=== PATIENT | male | born 1975 | race Caucasian/White ===

== ENCOUNTER 2018-11-29 19:10 | Inpatient (IN) | payer MEDICAID ==
[~2018-11-29] VITALS: Ht 182.9 cm; Wt 102.0 kg
[~2018-11-29 19:10] MED LIST: IBUP-1574 PO
[2018-11-29 20:39] LABS: BASOPHILS # (AUTO) 0.1 X10'3 (0-0.2); EOSINOPHILS # (AUTO) 0.1 X10'3 (0-0.9); MEAN PLATELET VOLUME 8.5 FL (7.4-10.4); MONOCYTES # (AUTO) 1.2 X10'3 (0-0.9)
[2018-11-29 20:40] LABS: BASOPHILS % (AUTO) 0.8 % (0-1); EOSINOPHILS % (AUTO) 0.6 % (0-6); HEMATOCRIT 50.1 % (42.0-52.0); HEMOGLOBIN 16.7 g/dl (14.0-17.9); LYMPHOCYTES # (AUTO) 2.6 X10'3 (1.1-4.8); LYMPHOCYTES % (AUTO) 18.9 % (21-51); MEAN CORPUSCULAR HEMOGLOBIN 29.9 PG (27.0-31.0); MEAN CORPUSCULAR HGB CONC 33.4 g/dL (33.0-36.5); MEAN CORPUSCULAR VOLUME 89.7 FL (78-98); NEUTROPHILS # (AUTO) 9.7 X10'3 (1.8-7.7); NEUTROPHILS % (AUTO) 70.7 % (42-75); PLATELET COUNT 316 X10'3 (140-440); RED BLOOD COUNT 5.59 X10'6 (4.70-6.10); RED CELL DISTRIBUTION WIDTH 15.1 % (11.5-14.5); WHITE BLOOD COUNT 13.8 X10'3 (4.5-11.0)
[2018-11-29 20:47] LABS: ALANINE AMINOTRANSFERASE 49 U/L (12-78); ALBUMIN 3.8 G/DL (3.4-5.0); ALKALINE PHOSPHATASE 123 IU/L (46-116); ANION GAP 8 (8-16); ASPARTATE AMINO TRANSFERASE 14 U/L (10-37); BILIRUBIN,TOTAL 0.3 MG/DL (0.1-1.0); BLOOD UREA NITROGEN 23 MG/DL (7-18); BUN/CREATININE RATIO 19.2 (5.4-32.0); CHLORIDE 107 MMOL/L (99-107); GLUCOSE 94 MG/DL (70-104); SODIUM 143 MMOL/L (135-145); TOTAL CARBON DIOXIDE 28.3 MMOL/L (24-32); TOTAL PROTEIN 7.5 G/DL (6.4-8.2); eGFR 67 ML/MIN
[2018-11-29] MEDS ORDERED: temazepam 15mg capsule PO PRN (21:00)
[2018-11-29] MEDS ORDERED: diltiazem-D5W 125mg/125ml 125 ML IV SCH ×2 (21:25→23:35)
[2018-11-29] MEDS ORDERED: normal saline 1000ml 1,000 ML IV ONE (21:25)
[2018-11-29] MEDS ORDERED: diltiazem 5mg/ml 5ml inj. IV ONE (21:25)
[2018-11-29] MEDS ORDERED: diltiazem-NS 100mg/100ml 100 ML IV SCH (21:29)
[2018-11-29] MEDS ORDERED: NO HOME MEDS (21:45)
--- NOTE | 2018-11-29 21:45 | NUR ---
pt states his bloody stool has stopped and it was bright red and only when he wiped after a BM. pt denies and abd pain or constipation.
[2018-11-29 21:58] LABS: MAGNESIUM 2.1 MG/DL (1.5-2.4); TROPONIN I < 0.04 NG/ML (0.0-0.05)
[2018-11-29] MEDS ORDERED: ondansetron/PF 4mg/2ml inj IV PRN (23:35)
[2018-11-29] MEDS ORDERED: magnesium hydroxide 30ml (MOM) UD suspension PO PRN (23:35)
[2018-11-29] MEDS ORDERED: mag hydrox/Alum hydrox/simeth 30ml oral suspension PO PRN (23:35)
[2018-11-29] MEDS ORDERED: acetaminophen 325mg tablet PO PRN ×2 (23:35)
[2018-11-29] MEDS: diltiazem-NS 100mg/100ml 100 ML IV SCH (23:52)
[2018-11-30] VITALS (17 sets, daily range): BP systolic 97–129; BP diastolic 69–95
[2018-11-30 03:27] LABS: CLARITY,URINE CLEAR (Clear); COLOR,URINE YELLOW (Yellow); GLUCOSE, URINE NEGATIVE (Neg); KETONES,URINE NEGATIVE (Neg); LEUKOCYTE ESTERASE ,URINE NEGATIVE (Neg); NITRITES, URINE NEGATIVE (Neg); OCCULT BLOOD,URINE NEGATIVE (Neg); PROTEIN,URINE NEGATIVE (Neg); UROBILINOGEN,URINE 0.2 E.U/dL (0.2-1.0)
[2018-11-30 03:32] LABS: UA COLLECTION TYPE URINAL
[2018-11-30 03:46] LABS: URINE AMPHETAMINE SCREEN POSITIVE (Neg); URINE BARBITUATE SCREEN NEGATIVE (Neg); URINE BENZODIAZEPINES SCREEN NEGATIVE (Neg); URINE CANNABINOID SCREEN NEGATIVE (Neg); URINE COCAINE SCREEN NEGATIVE (Neg); URINE METHADONE SCREEN NEGATIVE (Neg); URINE OPIATE SCREEN NEGATIVE (Neg); URINE PHENCYCLIDINE SCREEN NEGATIVE (Neg)
--- NOTE | 2018-11-30 06:10 | NUR ---
Patient in room PCU 3015. I have received report from Mirna CEVALLOS and had the opportunity to ask questions and assume patient care.
[2018-11-30 06:23] LABS: BASOPHILS # (AUTO) 0.1 X10'3 (0-0.2); BASOPHILS % (AUTO) 0.7 % (0-1); EOSINOPHILS # (AUTO) 0.1 X10'3 (0-0.9); EOSINOPHILS % (AUTO) 0.9 % (0-6); HEMATOCRIT 47.5 % (42.0-52.0); HEMOGLOBIN 15.5 g/dl (14.0-17.9); LYMPHOCYTES # (AUTO) 2.6 X10'3 (1.1-4.8); LYMPHOCYTES % (AUTO) 22.8 % (21-51); MEAN CORPUSCULAR HEMOGLOBIN 29.2 PG (27.0-31.0); MEAN CORPUSCULAR HGB CONC 32.6 g/dL (33.0-36.5); MEAN CORPUSCULAR VOLUME 89.6 FL (78-98); MEAN PLATELET VOLUME 8.7 FL (7.4-10.4); MONOCYTES % (AUTO) 8.8 % (2-12); NEUTROPHILS # (AUTO) 7.6 X10'3 (1.8-7.7); NEUTROPHILS % (AUTO) 66.8 % (42-75); PLATELET COUNT 284 X10'3 (140-440); WHITE BLOOD COUNT 11.5 X10'3 (4.5-11.0)
[2018-11-30 06:28] LABS: ALBUMIN 3.3 G/DL (3.4-5.0); ANION GAP 5 (8-16); BLOOD UREA NITROGEN 17 MG/DL (7-18); BUN/CREATININE RATIO 16.3 (5.4-32.0); CALCIUM 8.6 MG/DL (8.5-10.1); CHLORIDE 107 MMOL/L (99-107); CREATININE 1.04 MG/DL (0.60-1.10); GLUCOSE 98 MG/DL (70-104); POTASSIUM 4.6 MMOL/L (3.5-5.1); SODIUM 141 MMOL/L (135-145); eGFR 79 ML/MIN
[2018-11-30] MEDS: diltiazem-NS 100mg/100ml 100 ML IV SCH ×2 (09:25→19:48)
--- NOTE | 2018-11-30 09:30 | NUR ---
PAGER ID: [phone] MESSAGE: RE: Bear Hargrove, room: [facility]. Pt wants to be discharged, still on Cardizem drip 10ml/hr. Pt still in A-fib, HR 90. BP 116/83. [id number] Fitzpatrick paged concerning Pt wanting to be discharged
[2018-11-30] MEDS ORDERED: aspirin 325mg tablet, delayed-release (Ecotrin) PO ONE (09:55)
--- NOTE | 2018-11-30 18:25 | NUR ---
Problems reprioritized. Patient report given, questions answered & plan of care reviewed with Mirna CEVALLOS.
[2018-12-01 01:00] VITALS: BP 123/90
[2018-12-01 03:00] VITALS: BP 128/81
[2018-12-01] MEDS: diltiazem-NS 100mg/100ml 100 ML IV SCH (04:56)
[2018-12-01 05:00] VITALS: BP 100/74
[2018-12-01 05:53] LABS: BASOPHILS # (AUTO) 0.1 X10'3 (0-0.2); BASOPHILS % (AUTO) 0.6 % (0-1); EOSINOPHILS # (AUTO) 0.1 X10'3 (0-0.9); EOSINOPHILS % (AUTO) 1.1 % (0-6); HEMATOCRIT 49.3 % (42.0-52.0); HEMOGLOBIN 16.6 g/dl (14.0-17.9); LYMPHOCYTES # (AUTO) 2.2 X10'3 (1.1-4.8); LYMPHOCYTES % (AUTO) 19.2 % (21-51); MEAN CORPUSCULAR HEMOGLOBIN 29.6 PG (27.0-31.0); MEAN CORPUSCULAR HGB CONC 33.7 g/dL (33.0-36.5); MEAN PLATELET VOLUME 8.6 FL (7.4-10.4); MONOCYTES # (AUTO) 0.9 X10'3 (0-0.9); MONOCYTES % (AUTO) 7.5 % (2-12); NEUTROPHILS # (AUTO) 8.4 X10'3 (1.8-7.7); NEUTROPHILS % (AUTO) 71.6 % (42-75); PLATELET COUNT 296 X10'3 (140-440); RED CELL DISTRIBUTION WIDTH 14.8 % (11.5-14.5); WHITE BLOOD COUNT 11.7 X10'3 (4.5-11.0)
[2018-12-01 06:07] LABS: ALBUMIN 3.3 G/DL (3.4-5.0); ANION GAP 5 (8-16); BLOOD UREA NITROGEN 16 MG/DL (7-18); BUN/CREATININE RATIO 15.5 (5.4-32.0); CALCIUM 9.1 MG/DL (8.5-10.1); CHLORIDE 105 MMOL/L (99-107); CREATININE 1.03 MG/DL (0.60-1.10); GLUCOSE 97 MG/DL (70-104); POTASSIUM 4.5 MMOL/L (3.5-5.1); SODIUM 140 MMOL/L (135-145); TOTAL CARBON DIOXIDE 29.7 MMOL/L (24-32); eGFR 80 ML/MIN
--- NOTE | 2018-12-01 06:15 | NUR ---
Patient in room PCU 3015. I have received report from Mirna CEVALLOS and had the opportunity to ask questions and assume patient care.
[2018-12-01 07:00] VITALS: BP 123/95
[2018-12-01] MEDS ORDERED: aspirin 325mg tablet, delayed-release (Ecotrin) PO SCH (08:00)
[2018-12-01] MEDS ORDERED: diltiazem CD 120mg capsule (once-daily) PO SCH (08:00)
[2018-12-01] MEDS ORDERED: diltiazem CD 120mg capsule (once-daily) PO ONE (09:05)
[2018-12-01 11:00] VITALS: BP 104/72
--- NOTE | 2018-12-01 11:29 | NUR ---
Paged Dr. Rushing r/t pt asking about discharge today.
[2018-12-01 11:35] VITALS: BP 145/57
[2018-12-01] MEDS ORDERED: diltiazem 5mg/ml 5ml inj. IV ONE (11:35)
[2018-12-01] MEDS ORDERED: ASPI-41 PO (12:29)
[2018-12-01] MEDS ORDERED: DILT180C95 PO (12:29)
[2018-12-01] MEDS ORDERED: FOLI1TAB16 PO (12:29)
[2018-12-01] MEDS ORDERED: THIA100T66 PO (12:29)
--- NOTE | 2018-12-01 13:15 | NUR ---
Patient discharged. Patient discharged home via private vehicle accompanied by father. IV catheter removed prior to discharge, catheter intact. Tele leads removed from patient prior to discharge. Tele box returned to television parts tester. All patient belongings sent with patient prior to discharge. Discharge instructions provided to patient via RN prior to discharge. All questions and concerns addressed prior to discharge. New prescriptions called into patient's preferred pharmacy of [facility] in [place], [place] prior to discharge. Patient escorted downstairs in wheelchair via RN.
[2018-12-02] MEDS ORDERED: diltiazem CD 120mg capsule (once-daily) PO SCH (08:00)
== END 2018-12-01 13:15 | disposition home or self-care (01) | DRG 201 ==
LOC: ER 19:11 → PCU 3S 11-30 03:31
PROVIDERS: ADMIT Hospitalist; ATTEND Internal Medicine
DX: I48.0 Paroxysmal atrial fibrillation (principal); F10.10 Alcohol abuse, uncomplicated; F15.10 Other stimulant abuse, uncomplicated; Z71.41 Alcohol abuse counseling and surveillance of alcoholic; Z71.51 Drug abuse counseling and surveillance of drug abuser
CPT/HCPCS: 36415; 71045; 80048; 80053; 80305; 81003; 83735; 83880; 84484; 85025; 85610; 87070; 93005; 93306; 96365; 96376; 99285; G0378; J3490

== ENCOUNTER 2020-02-24 06:37 | Day surgery (SDC) | payer MEDICAID ==
[~2020-02-24] VITALS: Ht 180.3 cm; Wt 102.9 kg
[~2020-02-24 06:37] MED LIST changes: +ASPI-41 PO; +DILT-36 PO; +FOLI1TAB16 PO; -IBUP-1574 PO; +ONDA8TAB9 PO; +THIA100T66 PO
[2020-02-24 07:22] VITALS: BP 128/79
[2020-02-24] MEDS ORDERED: NO HOME MEDS (07:32)
[2020-02-24 09:15] VITALS: BP 128/76
[2020-02-24 09:23] VITALS: BP 140/78
[2020-02-24 10:45] LABS: GLUCOSE,BODY FLUID 8 MG/DL; LDH,BODY FLUID 3710 U/L
[2020-02-24 11:27] LABS: BF RBC COUNT 4000 /CU MM; BF WBC COUNT 37700 /CU MM (0-1000); BFAPPEAR TURBID; BFCOLOR BROWN; BFVOLUME 34 ML
[2020-02-24 11:28] LABS: LYMPHOCYTES,BODY FLUID 15 %; NEUTROPHILS,BODY FLUID 85 %
== END 2020-02-24 10:15 | disposition home or self-care (01) ==
LOC: SSTAY O 06:37
PROVIDERS: ATTEND Radiology Diagnostic Radiology
DX: R22.2 Localized swelling, mass and lump, trunk (principal); L72.0 Epidermal cyst
CPT/HCPCS: 10030; 10160; 76942; 82945; 83615; 87070; 89051

== ENCOUNTER 2020-11-23 06:57 | Day surgery (SDC) | payer MEDICAID, OTHER ==
[~2020-11-23] VITALS: Ht 180.3 cm; Wt 101.0 kg
[~2020-11-23 06:57] MED LIST changes: -ASPI-41 PO; -DILT-36 PO; -FOLI1TAB16 PO; +NO HOME MEDS; -ONDA8TAB9 PO; -THIA100T66 PO
[2020-11-23 07:32] VITALS: BP 140/89
[2020-11-23 08:40] VITALS: BP 142/76
--- NOTE | 2020-11-23 08:47 | NUR ---
at bedside consulting.
[2020-11-23 09:00] VITALS: BP 134/57
== END 2020-11-23 09:10 | disposition home or self-care (01) ==
LOC: SSTAY O 06:57
PROVIDERS: ATTEND Radiology Vascular & Interventional Radiology
DX: M96.842 Postprocedural seroma of a musculoskeletal structure following a musculoskeletal system procedure (principal); F17.210 Nicotine dependence, cigarettes, uncomplicated; Z72.89 Other problems related to lifestyle; F12.90 Cannabis use, unspecified, uncomplicated; Z98.890 Other specified postprocedural states; Y83.8 Other surgical procedures as the cause of abnormal reaction of the patient, or of later complication, without mention of misadventure at the time of the procedure; Y82.8 Other medical devices associated with adverse incidents
CPT/HCPCS: 10030

== ENCOUNTER 2020-12-20 06:15 | Day surgery (SDC) | payer MEDICAID, OTHER ==
[2020-12-20] VITALS (8 sets, daily range): BP systolic 114–134; BP diastolic 74–94
[~2020-12-20] VITALS: Ht 182.9 cm; Wt 101.2 kg
--- NOTE | 2020-12-20 09:35 | NUR ---
Pt sitting up in bed. Ate 100% of lunch tray and 250ml oral fluid intake. Pt is waiting for release from work note from Dr. Valles. will continue to monitor.
[2020-12-20 11:05] LABS: BFAPPEAR TURBID
[2020-12-20 11:06] LABS: BF RBC COUNT 35000 /CU MM; BF WBC COUNT 177500 /CU MM (0-1000); BFCOLOR BROWN; BFVOLUME 10 ML; MONOCYTES,BODY FLUID 3 %; NEUTROPHILS,BODY FLUID 97 %
== END 2020-12-20 10:20 | disposition home or self-care (01) ==
LOC: SSTAY O 06:15
PROVIDERS: ATTEND Radiology Diagnostic Radiology
DX: L76.34 Postprocedural seroma of skin and subcutaneous tissue following other procedure (principal); Z72.89 Other problems related to lifestyle; Z98.890 Other specified postprocedural states; Y83.8 Other surgical procedures as the cause of abnormal reaction of the patient, or of later complication, without mention of misadventure at the time of the procedure
CPT/HCPCS: 10160; 76942; 87070; 89051